=== PATIENT | female | born 1965 | race Caucasian/White ===

== ENCOUNTER 2017-04-08 17:48 | Emergency (ER) | payer OTHER ==
[2017-04-08 20:26] LABS: BASOPHIL 0.1 % (0-2); EOSINOPHIL 1.4 % (0-5); HCT 42.1 % (37.0-47.0); HGB 13.5 g/dl (12.5-16.0); LYMPHOCYTE 24.9 % (15-48); MCH 27.8 pg (25.0-31.0); MCHC 32.1 g/dL (32.0-36.0); MCV 86.6 fL (78.0-100.0); MONOCYTE 8.6 % (0-12); MPV 9.8 fL (6.0-9.5); PLT 406 K/uL (150-400); RBC 4.86 M/uL (4.20-5.40); RDW 14.2 % (11.5-14.0); WBC 9.5 K/uL (4.0-10.5)
[2017-04-08 20:40] LABS: BILIRUBIN - TOTAL 0.5 mg/dL (0.1-1.0); CREATININE 0.8 mg/dL (0.5-1.0); GLOBULIN (CALCULATION) 4.5 g/dL (2.2-4.2); POTASSIUM 4.7 mmol/L (3.5-5.1); TOTAL PROTEIN 8.5 g/dL (6.4-8.3)
[2017-04-08 21:48] LABS: BILIRUBIN NEGATIVE (NEGATIVE); BLOOD NEGATIVE Ery/uL (NEGATIVE); CLARITY CLEAR (CLEAR); COLOR YELLOW (YELLOW); GLUCOSE (U) NORMAL (NORMAL); KETONE (U) NEGATIVE (NEGATIVE); LEUKOCYTES NEGATIVE Leu/uL (NEGATIVE); NITRITE NEGATIVE (NEGATIVE); PROTEIN 1+ mg/dL (NEGATIVE); pH 5.5 (5.0-9.0)
[2017-04-08 21:56] LABS: BACTERIA TRACE; MUCOUS LARGE
== END 2017-04-08 23:38 | disposition home or self-care (01) ==
LOC: FER 17:48
PROVIDERS: Physician Assistant Medical
DX: N83.201 Unspecified ovarian cyst, right side (principal); Z90.49 Acquired absence of other specified parts of digestive tract; Z98.51 Tubal ligation status; Z88.0 Allergy status to penicillin; Z88.8 Allergy status to other drugs, medicaments and biological substances; Z88.6 Allergy status to analgesic agent
CPT/HCPCS: 36415; 80053; 81001; 82150; 83690; 85025; 87088; 93005; J1170; J1885; J2405; Q9967

== ENCOUNTER 2017-04-22 17:03 | Emergency (ER) | payer OTHER | END 2017-04-22 18:59 | disposition home or self-care (01) | LOC: FER 17:03 | DX: S61.012A Laceration without foreign body of left thumb without damage to nail, initial encounter (principal); I11.9 Hypertensive heart disease without heart failure; J45.909 Unspecified asthma, uncomplicated; Z23 Encounter for immunization; Z88.0 Allergy status to penicillin; Z88.1 Allergy status to other antibiotic agents; Z88.8 Allergy status to other drugs, medicaments and biological substances | CPT/HCPCS: 73140; 90471; 90715 ==

== ENCOUNTER 2022-03-12 08:33 | Emergency (ER) | payer OTHER ==
[~2022-03-12 08:33] MED LIST: AMLODIPINE BESYL5 MG PO; ANTIVERT25 MG PO; LASIX20 MG PO; ROSUVASTATIN CA10 MG PO; SYMBICORT 80-10.2 GM INH; TOPROL XL 25MG25 MG PO; VENTOLIN HFA IN18 GM INH
[2022-03-12 11:52] LABS: ALBUMIN 3.5 g/dL (3.4-5.0); BASOPHIL 0.4 % (0-2); BILIRUBIN - TOTAL 0.7 mg/dL (0.2-1.0); BUN/CREAT RATIO (CALC) 16.7 RATIO; CREATININE 0.6 mg/dL (0.51-0.95); EOSINOPHIL 3.3 % (0-5); GLOBULIN (CALCULATION) 5.2 g/dL; HGB 13.7 g/dl (12.5-16.0); LYMPHOCYTE 20.9 % (15-48); MCH 28.5 pg (25.0-31.0); MCHC 32.6 g/dL (32.0-36.0); MCV 87.5 fL (78.0-100.0); MONOCYTE 6.9 % (0-12); MPV 10.6 fL (6.0-9.5); NEUTROPHIL 68.1 % (41-80); NRBC 0; PLT 346 K/uL (150-400); POTASSIUM 4.3 mmol/L (3.5-5.1); RDW 13.2 % (11.5-14.0); TOTAL PROTEIN 8.7 g/dL (6.4-8.2); WBC 11.8 K/uL (4.0-10.5)
[2022-03-12 11:57] LABS: LACTIC ACID 1.7 mmol/L (0.4-1.9)
[2022-03-12] MEDS ORDERED: CLEOCIN300 MG PO (15:32)
== END 2022-03-12 16:10 | disposition home or self-care (01) ==
LOC: FER 08:33
PROVIDERS: Emergency Medicine
DX: K04.7 Periapical abscess without sinus (principal); E01.0 Iodine-deficiency related diffuse (endemic) goiter; I10 Essential (primary) hypertension; Z28.310 Unvaccinated for COVID-19; Z88.0 Allergy status to penicillin; Z88.1 Allergy status to other antibiotic agents; Z88.8 Allergy status to other drugs, medicaments and biological substances; Z91.030 Bee allergy status; Z91.013 Allergy to seafood; Z79.82 Long term (current) use of aspirin
CPT/HCPCS: 36415; 70491; 80053; 83605; 84145; 85025; 87040; 93005; J3490; Q9967